=== PATIENT | female | born 1950 | race Caucasian/White ===

== ENCOUNTER → 2018-03-03 | Outpatient (CLI) | payer MEDICARE ==
--- NOTE | 2018-03-11 10:33 | RSPPFT ---
DATE OF PROCEDURE: 03/03/18 COMMENTS: Spirometry with FVC of 1.5 predicted 2.7, FEV1 of 0.9 predicted 2.2, FEV1/FVC ratio 63% predicted 82%. Post-bronchodilator FVC increases to 1.7. Lung volumes show air trapping with RV at 2.9 predicted 2.0. Airways resistance is increased. DLCO is 57% of predicted. IMPRESSION: On the basis of the above, patient has an obstructive lung defect with responsiveness to acutely inhaled bronchodilator. Airways resistance is increased. DLCO is decreased.
== END ==
LOC: PHRSP 07:12
PROVIDERS: ATTEND Internal Medicine Pulmonary Disease
DX: R06.02 Shortness of breath (principal)
CPT/HCPCS: 94060; 94618; 94726; 94729